=== PATIENT | female | born 1955 | race African-American/Black ===

== ENCOUNTER → 2020-02-11 | Day surgery (SDC) | payer MEDICARE, OTHER ==
--- NOTE | 2020-02-06 11:18 | NUR ---
Checked temperature via skin 98.8F. Patient stated has not been out of the country and has not been around anyone that has been out of the country. Patient denies fever, cough. Patient reports shortness of breath but that has been occurring over last 3 months.
[2020-02-06 11:49] LABS: BASOPHILS % 0.4 % (0.0-1.0); EOSINOPHILS # (AUTO) 0.1 (0.0-0.4); EOSINOPHILS % 1.3 % (0.0-6.0); HEMATOCRIT 33.5 % (34.2-44.1); HEMOGLOBIN 10.3 g/dL (12.0-16.0); LYMPHOCYTES # (AUTO) 0.7 (1.0-3.2); LYMPHOCYTES % 13.4 % (18.0-39.1); MEAN CORPUSCULAR HEMOGLOBIN 27.3 pg (28-32); MEAN CORPUSCULAR HGB CONC 30.7 g/dL (31-35); MEAN CORPUSCULAR VOLUME 88.9 fL (81-99); MONOCYTES # (AUTO) 0.7 (0.2-0.8); MONOCYTES % 12.3 % (4.4-11.3); NEUTROPHILS # (AUTO) 3.8 (2.1-6.9); NEUTROPHILS % 72.4 % (38.7-80.0); PLATELET COUNT 263 x10e3/uL (140-360); RED BLOOD COUNT 3.77 x10e6/uL (3.6-5.1); RED CELL DISTRIBUTION WIDTH 16.4 % (11.7-14.4)
[2020-02-06 12:10] LABS: ALBUMIN 2.6 g/dL (3.5-5.0); ALBUMIN/GLOBULIN RATIO 0.7 (0.8-2.0); ANION GAP 9.1 mmol/L (8-16); CALCIUM 8.4 mg/dL (8.4-10.2); CREATININE, SERUM 1.31 mg/dL (0.57-1.11); POTASSIUM 4.1 mmol/L (3.5-5.1)
--- NOTE | 2020-02-06 14:47 | NUR ---
Dr. Gallardo notified of creatinine 1.31 and eGFR 49. No new orders at this time.
[2020-02-11] VITALS (9 sets, daily range): BP systolic 139–157; BP diastolic 66–90
[~2020-02-11] VITALS: Ht 157.5 cm; Wt 68.0 kg
[~2020-02-11] MED LIST: ALPRAZOLAM 0.5 MG TAB ONE; AMARYL1 MG PO; BUMETANIDE1 MG PO; CARVEDILOL3.125 MG PO; DEXTROSE 50% SYRINGE 50 ML IV ONE; DIPHENHYDRAMINE HCL 25 MG CAP ONE; ENTRESTO 49 MG1 EACH PO; FENTANYL CITRATE/PF 100MCG/2 ML INJ ONE; HEPARIN SOD/SOD CHLORIDE 2,000 ML ONE; IOPAMIDOL 370 MG/ML 200 ML INFUS..BTL INJ ONE; LANTUS 3ML100 UNITS/ SC; LIDOCAINE HCL 2% LOCAL 20 ML VIAL ONE; LISINOPRIL10 MG PO; METFORMIN HCL500 MG PO; MIDAZOLAM HCL 2 MG/2 ML VIAL ONE; SODIUM CHLORIDE 0.9% 1000ML 1,000 ML ONE; SPIRONOLACTONE25 MG PO
--- NOTE | 2020-02-11 13:05 | NUR ---
Patient drowsy and reports feeling dizzy. Patient's daughter Rich reports patient took insulin at bedtime and did not have any breakfast this morning. Blood sugar checked and was 38 via glucometer. Notified William Savage RN to gain IV access. Patient drowsy but able to follow instructions. Notified Lamonte Chen RN. Lamonte Chen RN stated she will notify Dr. Frederick.
--- NOTE | 2020-02-11 13:17 | NUR ---
Patient lethargic but arousable to verbal stimuli. Due to blood sugar 38 and when rechecked 35. Lamonte Chen RN stated to hold off giving alprazolam 0.5mg po and diphenydramine 50mg po at this time. Lamonte Chen RN stated she notified Dr. Gallardo of not giving preop medications.
--- NOTE | 2020-02-11 13:17 | NUR ---
1307 William WATTERS attempted IV but unable to gain IV access. Gave patient 4oz of orange juice. 1312 rechecked blood sugar: 35. Lamonte Chen RN notified and she stated to give 25ml of Dextrose 50% IV. Gave 25ml Dextrose 50% via Right hand IV. 22g Right hand IV appears to be without signs or symptoms of infiltration at this time. 1317 blood glucose rechecked. blood sugar 100. Patient appears to be more alert per daughter Coshelle at bedside. Patient voicing discomfort and asked for warm blanket. Dr. Gallardo notified.
--- NOTE | 2020-02-11 13:56 | NUR ---
1356pm RECEIVING NOTE [facility] [employer] [facility] RECOVERY DEPT............................................................... Bedside report received from DUONG Mccall. Identifierx2. Alert oriented and appropriate, PERRLA, respirations even and unlabored to room air. Pulses x4 extremities equal and strong. Pedal pulses PT/DP X4 . Cap fill brisk < 3 sec. Rt leg dressing intact. From old wound care. Rt groin sheath pull site NO gross issues pain,pallor, pressure or dysrhythmia. Skin warm and dry integrity appears D/I. IV 20g to left hand at 100cchr, presents healthy w/o s/s of infiltration or complaint. Abdomen soft and supple. pt offered toileting, denies need to urinate or defecate. No personal affects with patient. Family at bedside. Currently w/o complaint of pain or need. ds/rn
--- NOTE | 2020-02-11 15:55 | NUR ---
1555p Received orders for stat CT abd/pelvis w/o contrast.Informed Radiology dept. and transfered per stretcher to dept. Report to Dolores RN handoff completed. Bedrest till 5pm. mario/rn
--- NOTE | 2020-02-11 17:30 | NUR ---
1730pm ASSISTANT PROFESSOR OF ART RECOVERY DISCHARGE NURSING NOTE Pt meets DC criteria. Rt groin assessed for s/s of complication and presence of hematoma. Skin warm, dry, no discolor, and pulses present. IV removed from rt hand site dry and intact. Distal tip appears intact. VS WNL. Pt denies pain, sob, or need at this time. Family at bedside. Review of discharge paperwork and follow up instructions. verbalized understanding. Pt to wheelchair and transported to front of hospital. Transferred to private vehicle under own strength w/o incident with DC paperwork in hand. - mario/rn
--- NOTE | 2020-02-11 18:07 | Operative Report ---
DATE OF PROCEDURE: 02/11/2020 SURGEON: Eugene Gallardo MD INDICATIONS: 1. Coronary artery disease, abnormal stress test. 2. Acute systolic heart failure. PROCEDURES PERFORMED: 1. Left heart catheterization, selective coronary angiography. 2. Deployment of right groin Mynx closure device. 3. Conscious sedation monitoring and administration by the laborer ammunition assembly nurse with supervision by attending physician 35 minutes. COMPLICATIONS: None. RECOMMENDATIONS: Evaluation for noncardiac causes of edema. Medical therapy for severe coronary artery disease. DESCRIPTION OF PROCEDURE: Access was obtained in the right femoral artery. A 6-Tamazight sheath was placed. Coronary angiography demonstrated heavily calcified, mild disease in the left main and all coronary arteries. Left anterior descending artery proximal 70% to 80%, mid stent was widely patent. Remaining vessel had diffuse 50% to 70% stenosis, circumflex 90% tandem stenosis. Right coronary artery had diffuse 70% to 90%, stenosis, 1.5 mm vessel. LV end-diastolic pressure 23. No gradient across the aortic valve on pullback. Right groin repaired using Mynx closure device. The patient was discharged home the same day. Eugene Gallardo MD [facility] /[id number]
--- NOTE | 2020-02-11 20:26 | Diagnostic Imaging Report ---
EXAM: CT Abdomen and Pelvis WITHOUT contrast INDICATION: Cirrhosis ^liver cirrhosis ^[id number] ^1600 ^EGFR 49/18BUN s/p LHC CAD rt groin BR till 5pm COMPARISON: None. TECHNIQUE: Abdomen and pelvis were scanned utilizing a multidetector helical scanner from the lung base to the pubic symphysis without administration of IV contrast. Absence of intravenous contrast decreases sensitivity for detection of focal lesions and vascular pathology. Coronal and sagittal reformations were obtained. Routine protocol was performed. Dose modulation, iterative reconstruction, and/or weight based adjustment of the mA/kV was utilized to reduce the radiation dose to as low as reasonably achievable. IV CONTRAST: None. ORAL CONTRAST: None RADIATION DOSE: Total DLP: 575.24 mGy*cm Estimated effective dose: (DLP x 0.015 x size factor) mSv COMPLICATIONS: None According to history provided, a heart catheterization procedure was performed immediately prior to this CT accounting for contrast in the renal collecting systems. FINDINGS: LINES and TUBES: None. LOWER THORAX: There is mild atelectasis in the lung bases. A small left pleural effusion is noted. The heart is enlarged with coronary artery calcifications seen. There are curvilinear calcifications related to the left atrium that may be related to coronary vessels or mural calcification. HEPATOBILIARY: No focal hepatic lesions. No biliary ductal dilation. The liver margin appears smooth. There is prominence of the left lobe which may be seen with cirrhosis. GALLBLADDER: No radio-opaque stones or sludge. No wall thickening. SPLEEN: No splenomegaly. PANCREAS: No focal masses or ductal dilatation. The pancreas is not well-defined due to a paucity of mesenteric fat. ADRENALS: No adrenal nodules KIDNEYS/URETERS: No hydronephrosis. No cystic or solid mass lesions. No stones. Contrast in the bilateral renal collecting systems apparently related to previous heart catheterization procedure. GI TRACT: No abnormal distention, wall thickening, or evidence of bowel obstruction. Moderately large volume of stool throughout the colon may be seen with constipation. Appendix is normal. PELVIC ORGANS/BLADDER: Urinary bladder contains contrast and appears unremarkable. No discrete abnormal mass or fluid collection in the pelvis. LYMPH NODES: No dominant lymph node mass is seen in the abdomen, retroperitoneum or pelvis. VESSELS: Abdominal aorta is atherosclerotic with extensive calcified plaque. No abnormal dilatation. PERITONEUM / RETROPERITONEUM: No pneumoperitoneum or ascites. There is generalized edema of the mesentery. BONES: No acute or suspicious bony lesion. SOFT TISSUES: Superficial surrounding soft tissue shows generalized anasarca. There is indentation of the soft tissues over the right groin which might be related to an external compression device. IMPRESSION: 1. No CT evidence for acute abdominal or pelvic pathology within the limits of noncontrast imaging. 2. The heart is enlarged with small right pleural effusion. There is generalized anasarca of the superficial soft tissues and mild edema of the mesentery which may be seen with fluid overload. 3. Morphologic features which may be related to liver disease. The spleen is not enlarged. Staff: Sydnee Signed by: Dr. Nikos Randhawa M.D. on 02/11/2020 8:23 PM
== END | disposition home or self-care (01) ==
LOC: CATH LAB 11:53
PROVIDERS: ATTEND Internal Medicine Interventional Cardiology
DX: I25.10 Atherosclerotic heart disease of native coronary artery without angina pectoris (principal); I50.21 Acute systolic (congestive) heart failure; I25.2 Old myocardial infarction; R94.39 Abnormal result of other cardiovascular function study; E11.9 Type 2 diabetes mellitus without complications; Z01.812 Encounter for preprocedural laboratory examination; Z79.4 Long term (current) use of insulin
CPT/HCPCS: 36415 ×2; 74176; 80053; 82948; 85025; 93458; C1760; C1769; J2001; J2250; J3010; J7030; J7799; Q9967; 93454; 99152; 99153

== ENCOUNTER 2020-10-19 13:34 | Inpatient (IN) | payer MEDICARE ==
[~2020-10-19] VITALS: Ht 157.5 cm; Wt 69.5 kg
[~2020-10-19 13:34] MED LIST changes: -ALPRAZOLAM 0.5 MG TAB ONE; -DEXTROSE 50% SYRINGE 50 ML IV ONE; -DIPHENHYDRAMINE HCL 25 MG CAP ONE; -FENTANYL CITRATE/PF 100MCG/2 ML INJ ONE; -HEPARIN SOD/SOD CHLORIDE 2,000 ML ONE; -IOPAMIDOL 370 MG/ML 200 ML INFUS..BTL INJ ONE; -LIDOCAINE HCL 2% LOCAL 20 ML VIAL ONE; -MIDAZOLAM HCL 2 MG/2 ML VIAL ONE; -SODIUM CHLORIDE 0.9% 1000ML 1,000 ML ONE
[2020-10-19 14:26] VITALS: BP 125/57
[2020-10-19 14:53] VITALS: BP 125/57
[2020-10-19 15:00] VITALS: BP 125/57
[2020-10-19 15:37] LABS: BASOPHILS % 0.5 % (0.0-1.0); EOSINOPHILS # (AUTO) 0.1 (0.0-0.4); EOSINOPHILS % 2.2 % (0.0-6.0); HEMATOCRIT 31.2 % (34.2-44.1); HEMOGLOBIN 9.6 g/dL (12.0-16.0); LYMPHOCYTES # (AUTO) 0.6 (1.0-3.2); LYMPHOCYTES % 15.2 % (18.0-39.1); MEAN CORPUSCULAR HEMOGLOBIN 28.5 pg (28-32); MEAN CORPUSCULAR HGB CONC 30.8 g/dL (31-35); MEAN CORPUSCULAR VOLUME 92.6 fL (81-99); MONOCYTES # (AUTO) 0.4 (0.2-0.8); MONOCYTES % 9.7 % (4.4-11.3); NEUTROPHILS # (AUTO) 2.9 (2.1-6.9); NEUTROPHILS % 71.9 % (38.7-80.0); PLATELET COUNT 265 x10e3/uL (140-360); RED BLOOD COUNT 3.37 x10e6/uL (3.6-5.1); RED CELL DISTRIBUTION WIDTH 14.7 % (11.7-14.4)
[2020-10-19] MEDS ORDERED: ATORVASTATIN CA20 MG PO (15:38)
[2020-10-19] MEDS ORDERED: TORSEMIDE100 MG PO (15:38)
[2020-10-19 15:56] LABS: ALBUMIN 2.4 g/dL (3.5-5.0); ALBUMIN/GLOBULIN RATIO 0.6 (0.8-2.0); ANION GAP 12.6 mmol/L (8-16); CREATININE, SERUM 1.18 mg/dL (0.57-1.11); POTASSIUM 3.6 mmol/L (3.5-5.1)
[2020-10-19] MEDS ORDERED: CEFTRIAXONE SOD 1 GM/NS 50 ML 50 ML IV SCH (16:00)
[2020-10-19 17:04] VITALS: BP 134/61
[2020-10-19] MEDS: ENOXAPARIN SOD INJ 40 MG/0.4 ML SYR SC SCH (17:38)
[2020-10-19 20:00] VITALS: BP 129/59
[2020-10-19] MEDS: SPIRONOLACTONE 25 MG TAB PO SCH (20:40)
[2020-10-19] MEDS: CARVEDILOL 3.125 MG TAB PO SCH (20:40)
[2020-10-19] MEDS: ATORVASTATIN 20 MG TAB PO SCH (20:41)
[2020-10-19 21:00] VITALS: BP 129/59
[2020-10-19] MEDS ORDERED: SODIUM CHLORIDE 0.9% 250ML 250 ML ONE (21:00)
[2020-10-19] MEDS ORDERED: INSULIN GLARGINE 100 UNITS/ML VIAL SC SCH (21:00)
[2020-10-19] MEDS: VANCOMYCIN 1GM/NS 250 ML 250 ML IV SCH (21:30)
[2020-10-20] VITALS (8 sets, daily range): BP systolic 103–134; BP diastolic 41–82
[2020-10-20 06:13] LABS: ALANINE AMINOTRANSFERASE 14 IU/L (0-55); ALBUMIN 2.2 g/dL (3.5-5.0); ALBUMIN/GLOBULIN RATIO 0.6 (0.8-2.0); ALKALINE PHOSPHATASE 79 IU/L (40-150); ANION GAP 11.6 mmol/L (8-16); BLOOD UREA NITROGEN 20 mg/dL (7-26); BUN/CREATININE RATIO 19 (6-25); CARBON DIOXIDE 29 mmol/L (22-29); CHLORIDE 106 mmol/L (98-107); CREATININE, SERUM 1.05 mg/dL (0.57-1.11); EST GLOMERULAR FILTRATION RATE > 60 ML/MIN (60-); POTASSIUM 3.6 mmol/L (3.5-5.1); SODIUM 143 mmol/L (136-145)
[2020-10-20 06:14] LABS: GLUCOSE 57 mg/dL (74-118)
[2020-10-20 06:22] LABS: BASOPHILS % 0.8 % (0.0-1.0); EOSINOPHILS # (AUTO) 0.1 (0.0-0.4); HEMATOCRIT 28.4 % (34.2-44.1); HEMOGLOBIN 8.9 g/dL (12.0-16.0); LYMPHOCYTES # (AUTO) 0.7 (1.0-3.2); LYMPHOCYTES % 14.7 % (18.0-39.1); MEAN CORPUSCULAR HEMOGLOBIN 29.4 pg (28-32); MEAN CORPUSCULAR HGB CONC 31.3 g/dL (31-35); MEAN CORPUSCULAR VOLUME 93.7 fL (81-99); MONOCYTES # (AUTO) 0.5 (0.2-0.8); MONOCYTES % 10.7 % (4.4-11.3); NEUTROPHILS # (AUTO) 3.6 (2.1-6.9); NEUTROPHILS % 71.6 % (38.7-80.0); PLATELET COUNT 291 x10e3/uL (140-360); RED BLOOD COUNT 3.03 x10e6/uL (3.6-5.1)
[2020-10-20] MEDS ORDERED: DEXTROSE 50% SYRINGE 50 ML IV ONE (06:46)
[2020-10-20] MEDS: TORSEMIDE 10 MG TAB PO SCH (06:48)
[2020-10-20] MEDS ORDERED: DEXTROSE 50% SYRINGE 50 ML IV PRN (07:00)
[2020-10-20] MEDS: INSULIN LISPRO 100 UNIT/1 ML 3ML VIAL SQ SCH ×4 (07:30→21:46)
[2020-10-20] MEDS: SPIRONOLACTONE 25 MG TAB PO SCH ×2 (09:24→16:58)
[2020-10-20] MEDS: CARVEDILOL 3.125 MG TAB PO SCH ×2 (09:25→16:58)
[2020-10-20] MEDS: SACUBITRIL/VALSARTAN 1 EACH TABLET PO SCH (10:02)
[2020-10-20] MEDS: COLLAGENASE OINTMENT 30 GM TUBE TOP SCH (10:18)
[2020-10-20] MEDS: CLINDAMYCIN 300MG 50 ML IV SCH ×3 (13:00→23:31)
[2020-10-20] MEDS ORDERED: CEFTRIAXONE SOD 1 GM/NS 50 ML 50 ML IV SCH (17:00)
[2020-10-20] MEDS: ENOXAPARIN SOD INJ 40 MG/0.4 ML SYR SC SCH (17:00)
[2020-10-20] MEDS: ACETAMINOPHEN 325 MG TAB PO PRN ×2 (17:06→23:31)
[2020-10-20] MEDS: VANCOMYCIN 1GM/NS 250 ML 250 ML IV SCH (20:10)
[2020-10-20] MEDS: ATORVASTATIN 20 MG TAB PO SCH (20:10)
[2020-10-20] MEDS ORDERED: INSULIN GLARGINE 100 UNITS/ML VIAL SC SCH (21:00)
[2020-10-21] VITALS (7 sets, daily range): BP systolic 98–150; BP diastolic 37–100
[2020-10-21] MEDS: ACETAMINOPHEN 325 MG TAB PO PRN ×3 (04:58→22:30)
[2020-10-21] MEDS: CLINDAMYCIN 300MG 50 ML IV SCH (06:08)
[2020-10-21] MEDS: TORSEMIDE 10 MG TAB PO SCH (06:34)
[2020-10-21] MEDS: INSULIN LISPRO 100 UNIT/1 ML 3ML VIAL SQ SCH ×4 (07:30→21:32)
[2020-10-21] MEDS ORDERED: COLLAGENASE 5 GM TUBE TOP SCH (09:00)
[2020-10-21] MEDS: SPIRONOLACTONE 25 MG TAB PO SCH ×2 (09:02→18:00)
[2020-10-21] MEDS: CARVEDILOL 3.125 MG TAB PO SCH ×2 (09:02→18:00)
[2020-10-21] MEDS: SACUBITRIL/VALSARTAN 1 EACH TABLET PO SCH (09:02)
[2020-10-21] MEDS: COLLAGENASE OINTMENT 30 GM TUBE TOP SCH (09:24)
[2020-10-21] MEDS ORDERED: MIDAZOLAM HCL 2 MG/2 ML VIAL ONE ×3 (11:43→13:59)
[2020-10-21] MEDS ORDERED: FENTANYL CITRATE/PF 100MCG/2 ML INJ ONE ×2 (11:44→14:00)
[2020-10-21] MEDS ORDERED: LIDOCAINE HCL 2% LOCAL 20 ML VIAL ONE (11:44)
[2020-10-21] MEDS ORDERED: HEPARIN SOD/SOD CHLORIDE 2,000 ML ONE (11:44)
[2020-10-21] MEDS ORDERED: SODIUM CHLORIDE 0.9% 1000ML 1,000 ML ONE (11:46)
[2020-10-21] MEDS ORDERED: IOPAMIDOL 300MG/ML 100 ML INFUS..BTL IV ONE ×2 (11:46→14:03)
[2020-10-21] MEDS: CLINDAMYCIN 600MG / 50ML 50 ML IV SCH (17:00)
[2020-10-21] MEDS: ENOXAPARIN SOD INJ 40 MG/0.4 ML SYR SC SCH (18:00)
[2020-10-21] MEDS: LIDOCAINE HCL 2% JELLY 5 ML TUBE TOP PRN (21:30)
[2020-10-21] MEDS: INSULIN GLARGINE 100 UNITS/ML VIAL SC SCH (21:31)
[2020-10-21] MEDS: ATORVASTATIN 20 MG TAB PO SCH (21:31)
[2020-10-22] VITALS (9 sets, daily range): BP systolic 98–120; BP diastolic 48–62
[2020-10-22] MEDS: CLINDAMYCIN 600MG / 50ML 50 ML IV SCH ×3 (00:10→16:00)
[2020-10-22] MEDS: HYDROCODONE/APAP 5MG-325MG TAB PO PRN ×3 (03:58→21:15)
[2020-10-22] MEDS: TORSEMIDE 10 MG TAB PO SCH (06:00)
[2020-10-22] MEDS: INSULIN LISPRO 100 UNIT/1 ML 3ML VIAL SQ SCH ×4 (07:30→21:20)
[2020-10-22] MEDS: COLLAGENASE OINTMENT 30 GM TUBE TOP SCH (09:00)
[2020-10-22] MEDS: SPIRONOLACTONE 25 MG TAB PO SCH ×2 (09:00→18:16)
[2020-10-22] MEDS: SACUBITRIL/VALSARTAN 1 EACH TABLET PO SCH (09:38)
[2020-10-22] MEDS: CARVEDILOL 3.125 MG TAB PO SCH ×2 (09:39→18:22)
[2020-10-22] MEDS: ENOXAPARIN SOD INJ 40 MG/0.4 ML SYR SC SCH (18:16)
[2020-10-22] MEDS: ATORVASTATIN 20 MG TAB PO SCH (21:12)
[2020-10-22] MEDS: INSULIN GLARGINE 100 UNITS/ML VIAL SC SCH (21:20)
[2020-10-23] VITALS (8 sets, daily range): BP systolic 87–135; BP diastolic 39–69
[2020-10-23] MEDS: TORSEMIDE 10 MG TAB PO SCH (06:00)
[2020-10-23] MEDS: INSULIN LISPRO 100 UNIT/1 ML 3ML VIAL SQ SCH ×4 (07:30→21:25)
[2020-10-23] MEDS: CARVEDILOL 3.125 MG TAB PO SCH ×2 (08:11→17:00)
[2020-10-23] MEDS: SACUBITRIL/VALSARTAN 1 EACH TABLET PO SCH (08:11)
[2020-10-23] MEDS: SPIRONOLACTONE 25 MG TAB PO SCH ×2 (08:11→17:55)
[2020-10-23] MEDS: CLINDAMYCIN 600MG / 50ML 50 ML IV SCH ×4 (08:12→23:24)
[2020-10-23] MEDS: COLLAGENASE OINTMENT 30 GM TUBE TOP SCH (10:54)
[2020-10-23] MEDS: HYDROCODONE/APAP 5MG-325MG TAB PO PRN (13:12)
[2020-10-23] MEDS: ENOXAPARIN SOD INJ 40 MG/0.4 ML SYR SC SCH (17:55)
[2020-10-23] MEDS ORDERED: SODIUM CHLORIDE 0.9% 500ML 500 ML IV ONE (21:15)
[2020-10-23] MEDS: INSULIN GLARGINE 100 UNITS/ML VIAL SC SCH (21:25)
[2020-10-23] MEDS: ATORVASTATIN 20 MG TAB PO SCH (21:25)
[2020-10-24] MEDS: HYDROCODONE/APAP 5MG-325MG TAB PO PRN (04:27)
[2020-10-24 04:58] VITALS: BP 113/85
[2020-10-24] MEDS: TORSEMIDE 10 MG TAB PO SCH (05:16)
[2020-10-24] MEDS: LIDOCAINE HCL 2% JELLY 5 ML TUBE TOP PRN (05:52)
[2020-10-24 07:48] VITALS: BP 124/58
[2020-10-24] MEDS: SPIRONOLACTONE 25 MG TAB PO SCH (08:48)
[2020-10-24] MEDS: CLINDAMYCIN 600MG / 50ML 50 ML IV SCH (08:48)
[2020-10-24] MEDS: CARVEDILOL 3.125 MG TAB PO SCH (08:49)
[2020-10-24] MEDS: SACUBITRIL/VALSARTAN 1 EACH TABLET PO SCH (08:49)
[2020-10-24] MEDS: COLLAGENASE OINTMENT 30 GM TUBE TOP SCH (08:49)
[2020-10-24 09:00] VITALS: BP 124/58
[2020-10-24] MEDS: INSULIN LISPRO 100 UNIT/1 ML 3ML VIAL SQ SCH ×2 (09:03→11:56)
[2020-10-24 09:40] LABS: BASOPHILS % 0.6 % (0.0-1.0); EOSINOPHILS # (AUTO) 0.1 (0.0-0.4); EOSINOPHILS % 2.1 % (0.0-6.0); HEMATOCRIT 36.5 % (34.2-44.1); HEMOGLOBIN 11.5 g/dL (12.0-16.0); LYMPHOCYTES % 20.8 % (18.0-39.1); MEAN CORPUSCULAR HEMOGLOBIN 28.8 pg (28-32); MEAN CORPUSCULAR HGB CONC 31.5 g/dL (31-35); MEAN CORPUSCULAR VOLUME 91.5 fL (81-99); MONOCYTES # (AUTO) 0.4 (0.2-0.8); MONOCYTES % 7.8 % (4.4-11.3); NEUTROPHILS # (AUTO) 3.3 (2.1-6.9); NEUTROPHILS % 68.3 % (38.7-80.0); PLATELET COUNT 272 x10e3/uL (140-360); RED BLOOD COUNT 3.99 x10e6/uL (3.6-5.1); RED CELL DISTRIBUTION WIDTH 14.6 % (11.7-14.4)
[2020-10-24 09:57] LABS: ANION GAP 16.3 mmol/L (8-16); CALCIUM 8.2 mg/dL (8.4-10.2); POTASSIUM 5.3 mmol/L (3.5-5.1)
[2020-10-24 11:17] VITALS: BP 123/62
[2020-10-24 15:33] VITALS: BP 112/47
== END 2020-10-24 15:55 | DRG 300 ==
LOC: MED/SURG2 13:36
PROVIDERS: ADMIT Family Medicine; ATTEND Family Medicine
PROC: B3101ZZ Fluoroscopy of Thoracic Aorta using Low Osmolar Contrast (ICD-10-PCS; principal; 2020-10-21)
DX: E11.51 Type 2 diabetes mellitus with diabetic peripheral angiopathy without gangrene (principal); I50.22 Chronic systolic (congestive) heart failure; L97.821 Non-pressure chronic ulcer of other part of left lower leg limited to breakdown of skin; L97.811 Non-pressure chronic ulcer of other part of right lower leg limited to breakdown of skin; L03.116 Cellulitis of left lower limb; L03.115 Cellulitis of right lower limb; N17.9 Acute kidney failure, unspecified; E44.0 Moderate protein-calorie malnutrition; I70.92 Chronic total occlusion of artery of the extremities; I25.10 Atherosclerotic heart disease of native coronary artery without angina pectoris; I70.248 Atherosclerosis of native arteries of left leg with ulceration of other part of lower leg; I70.238 Atherosclerosis of native arteries of right leg with ulceration of other part of lower leg; H54.8 Legal blindness, as defined in USA; E11.319 Type 2 diabetes mellitus with unspecified diabetic retinopathy without macular edema; Z95.5 Presence of coronary angioplasty implant and graft; Z95.810 Presence of automatic (implantable) cardiac defibrillator; Z20.828 Contact with and (suspected) exposure to other viral communicable diseases; I11.0 Hypertensive heart disease with heart failure; E78.5 Hyperlipidemia, unspecified; Z68.20 Body mass index [BMI] 20.0-20.9, adult; Z79.4 Long term (current) use of insulin
CPT/HCPCS: 36415; 71045; 80048; 80053; 80202; 82948; 83036; 83735; 83880; 85025; 87040; 93925; 97139; 99251; J0696; J1650; J1815; J2001; J2250; J3010; J3370; J7030; J7040; J7050; J7799; Q9967; U0002